=== PATIENT | female | born 1985 | race Two or more races ===

== ENCOUNTER 2022-04-06 21:12 | Emergency (ER) | payer SELFPAY ==
[~2022-04-06] VITALS: Ht 170.2 cm; Wt 74.8 kg
--- NOTE | 2022-04-06 21:20 | NUR ---
BIBRA 860 FROM [facility] C/O L HIP PAIN RADIATING TO L FLANK S/P SLIP AND FALL ON WATER. -LOC -TRAUMA. PT A/OX4. TOLERATING R/A WELL WITH NO SOB. CONNECTED PT TO POX AND MONITOR. SAFETY MEASURES IN PLACE.
--- NOTE | 2022-04-06 21:49 | NUR ---
PT SIGNED WAIVER FORM
[2022-04-06] MEDS ORDERED: HYDROCODONE/APAP 5/325MG TABLET ONE (21:51)
[2022-04-06] MEDS ORDERED: IBUPROFEN 600 MG TABLET PO ONE (22:00)
[2022-04-06] MEDS ORDERED: HYDROCODONE/APAP 5/325MG TABLET PO ONE (22:00)
--- NOTE | 2022-04-06 22:34 | NUR ---
[employer] AT PT'S BEDSIDE
[2022-04-06] MEDS ORDERED: TRAM50TA2 PO (22:42)
[2022-04-06] MEDS ORDERED: IBUP-1955 PO (22:42)
--- NOTE | 2022-04-06 22:45 | NUR ---
NEO WRAP APPLIED TO PT'S L KNEE
[2022-04-06 23:59] VITALS: BP 115/65
--- NOTE | 2022-04-06 23:59 | NUR ---
Patient discharged to home in stable condition. RX Written and verbal after care instructions given. Patient verbalizes understanding of instruction. PT ambulatory with a steady gait with crutches
== END 2022-04-07 00:04 | disposition home or self-care (01) ==
LOC: ER 21:13
DX: S30.0XXA Contusion of lower back and pelvis, initial encounter (principal); S89.92XA Unspecified injury of left lower leg, initial encounter; W01.0XXA Fall on same level from slipping, tripping and stumbling without subsequent striking against object, initial encounter; Y93.89 Activity, other specified; Y92.89 Other specified places as the place of occurrence of the external cause; Y99.8 Other external cause status
CPT/HCPCS: 72110-TC; 73502; 73564-TC